=== PATIENT | female | born 1980 | race Caucasian/White ===

== ENCOUNTER 2018-04-02 17:50 | Emergency (ER) | payer BC, SELFPAY ==
[~2018-04-02] VITALS: Ht 170.2 cm; Wt 119.8 kg
[~2018-04-02 17:50] MED LIST: BUPR100 PO; BUPR150T2; BUSP10 PO; CIPR500 PO; CITA20 PO; CLIN300 PO; CYCL10 PO; Cleocin HCl300 MG PO; Ery-Tab250 MG PO; FEXO60 PO; FLUO20 PO; HYDACE10B PO; HYDACE5 PO; KETO10 PO; LISI10; LISI20 PO; LISI5 PO; METF500C; METO25ER; NAPR500 PO; OMEP20ER PO; ONDA8ODT MM; OXYACE5T PO; PHENA200 PO; PROM25 PO; PROP10 PO; Percocet 5-3251 EACH PO; QUASENSE PO; RXOXYACE PO; RXPROM25 PO; VENL37.5ER PO; VENL75ER; VITS; [UNRECOGNIZED DRUG - OTHER]; [UNRECOGNIZED DRUG - OTHER] PO
[2018-04-02] MEDS ORDERED: BUSP10 PO (18:10)
[2018-04-02] MEDS ORDERED: PROP10 PO (18:10)
[2018-04-02] MEDS ORDERED: LISI20 PO (18:11)
[2018-04-02] MEDS ORDERED: BUPR100ER PO (18:11)
[2018-04-02] MEDS ORDERED: Citalopram HBr20 MG PO (18:11)
[2018-04-02] MEDS ORDERED: Omeprazole20 M1 PO (18:12)
[2018-04-02 18:32] LABS: BASOPHILS ABSOLUTE AUTO 0.03 K/mm3 (0.00-0.23); BASOPHILS PERCENT AUTO 0 % (0-2); EOSINOPHILS ABSOLUTE AUTO 0.11 K/mm3 (0.00-0.68); EOSINOPHILS PERCENT AUTO 1 % (0-6); Hematocrit 39.1 % (33.0-51.0); Hemoglobin 12.9 g/dL (11.5-16.0); IMMATURE GRAN ABSOLUTE AUTO 0.06 K/mm3 (0.00-0.10); IMMATURE GRAN PERCENT AUTO 0 % (0-1); LYMPHOCYTES ABSOLUTE AUTO 1.77 K/mm3 (0.84-5.20); LYMPHOCYTES PERCENT AUTO 13 % (21-46); MONOCYTES ABSOLUTE AUTO 1.23 K/mm3 (0.16-1.47); MONOCYTES PERCENT AUTO 9 % (4-13); Mean Corpuscular HGB 30.1 pg (26.0-34.0); Mean Corpuscular Volume 91 fL (80-100); Mean Platelet Volume 9.3 fL (9.1-12.4); NEUTROPHILS ABSOLUTE AUTO 10.44 K/mm3 (1.96-9.15); NEUTROPHILS PERCENT AUTO 77 % (41-73); Platelet Count 308 K/mm3 (150-400); RDW Coefficient Variation 12.6 % (11.7-14.2); RDW Standard Deviation 41.8 fL (35.1-46.3); Red Blood Cell Count 4.29 M/mm3 (3.80-5.20); White Blood Cell Count 13.64 K/mm3 (4.00-11.30)
[2018-04-02 18:45] LABS: Alanine Aminotransfer (ALT/SGP 48 U/L (12-78); Albumin, Blood 3.8 g/dL (3.4-5.0); Albumin/Globulin Ratio 0.9 (0.8-1.8); Alk Phos 99 U/L (50-136); Anion Gap 8 mmol/L (6-16); Aspartate Aminotrans (AST/SGOT 18 U/L (12-37); Bilirubin, Total 0.3 mg/dL (0.1-1.0); Blood Urea Nitrogen 9 mg/dL (8-24); Bun/Creatinine Ratio 10.5 (12.0-20.0); CO2, Blood 26 mmol/L (21-32); Chloride, Blood 103 mmol/L (98-108); Creatinine, Blood 0.86 mg/dL (0.40-1.00); Globulin, Blood 4.2 g/dL (2.2-4.0); Glomerular Filtration Rate >60 (60-); Glucose, Blood 96 mg/dL (70-99); Potassium, Blood 3.7 mmol/L (3.5-5.5); Sodium, Blood 137 mmol/L (136-145)
[2018-04-02 19:19] LABS: Source, Urine Clean Catch
[2018-04-02 19:25] LABS: Bilirubin, Urine Neg (Neg); Blood, Urine 4+ (Neg); Glucose Qualitative, Urine Neg (Neg); Ketones, Urine Neg (Neg); Leukocyte Esterase, Urine 1+ (Neg); Nitrite, Urine Neg (Neg); Protein, Urine 1+ (Neg); Urobilinogen, Urine NORM (Normal)
[2018-04-02 19:40] LABS: Appearance, Urine Hazy (Clear); Color, Urine Yellow (P-Yellow)
[2018-04-02 19:41] LABS: Bacteria Many /hpf; Red Blood Cells, Urine 50-100 /hpf (0-2); Squamous Epithelial Cells Few /hpf (Few)
[2018-04-02] MEDS ORDERED: Roxicodone5 MG PO ×2 (21:30→21:47)
[2018-04-02] MEDS ORDERED: CEFD300 PO (21:32)
[2018-04-02] MEDS ORDERED: Zofran Odt4 MG PO (21:32)
== END 2018-04-02 21:57 | disposition home or self-care (01) ==
LOC: ER 17:50
PROVIDERS: Emergency Medicine
DX: N12 Tubulo-interstitial nephritis, not specified as acute or chronic (principal); I10 Essential (primary) hypertension; Z88.0 Allergy status to penicillin; Z88.2 Allergy status to sulfonamides; Z88.5 Allergy status to narcotic agent; Z79.899 Other long term (current) drug therapy; Z87.891 Personal history of nicotine dependence
CPT/HCPCS: 36415; 76770; 80053; 81001; 83690; 85025; 96361; 96365; 96375; 99284; J0696; J1885; J3010; J7030

== ENCOUNTER 2021-12-24 10:45 | Day surgery (SDC) | payer BC ==
[~2021-12-24] VITALS: Ht 170.2 cm; Wt 111.4 kg
[~2021-12-24 10:45] MED LIST changes: +BUPR100ER PO; +CEFD300 PO; +Citalopram HBr20 MG PO; +Omeprazole20 M1 PO; +Roxicodone5 MG PO; +Zofran Odt4 MG PO
[2021-12-24] MEDS ORDERED: ESTRADIOL (TWI1 EAC3 TD (12:12)
[2021-12-24] MEDS ORDERED: CYMBALTA30 M2 PO (12:12)
[2021-12-24] MEDS ORDERED: DULOXETINE HCL60 M1 PO (12:12)
[2021-12-24] MEDS ORDERED: TIZANIDINE HCL PO (12:14)
[2021-12-24] MEDS ORDERED: VITAMIN D31000 UNI1 PO (12:15)
[2021-12-24] MEDS ORDERED: ZINC15 PO (12:15)
[2021-12-24] MEDS ORDERED: MULVITA PO (12:15)
[2021-12-24] MEDS ORDERED: CALCIUM 600 +1 EA11 PO (12:16)
[2021-12-24] MEDS ORDERED: ZYRTEC10 M2 PO (12:16)
== END 2021-12-24 15:15 | disposition home or self-care (01) ==
LOC: ORSCSDS 10:45
PROVIDERS: Podiatrist Foot & Ankle Surgery
PROC: 0QSN04Z Reposition Right Metatarsal with Internal Fixation Device, Open Approach (ICD-10-PCS; principal; 2021-12-24 12:15)
DX: S92.354D Nondisplaced fracture of fifth metatarsal bone, right foot, subsequent encounter for fracture with routine healing (principal); I10 Essential (primary) hypertension; K21.9 Gastro-esophageal reflux disease without esophagitis; E66.01 Morbid (severe) obesity due to excess calories; Z68.38 Body mass index [BMI] 38.0-38.9, adult; Z79.899 Other long term (current) drug therapy
CPT/HCPCS: 82947; A9270; C1713; J0171; J1100; J1885; J2250; J2405; J2704; J3010; J3370; J7050; J7120

== ENCOUNTER 2023-09-18 17:19 | Emergency (ER) | payer BC ==
[~2023-09-18] VITALS: Ht 170.2 cm; Wt 111.1 kg
[~2023-09-18 17:19] MED LIST changes: +CALCIUM 600 +1 EA11 PO; +CYMBALTA30 M2 PO; +DULOXETINE HCL60 M1 PO; +ESTRADIOL (TWI1 EAC3 TD; +MULVITA PO; +TIZANIDINE HCL PO; +VITAMIN D31000 UNI1 PO; +ZINC15 PO; +ZYRTEC10 M2 PO
[2023-09-18 18:03] VITALS: BP 192/104
[2023-09-18 18:43] LABS: BASOPHILS ABSOLUTE AUTO 0.04 K/mm3 (0.00-0.23); BASOPHILS PERCENT AUTO 0 % (0-2); EOSINOPHILS ABSOLUTE AUTO 0.18 K/mm3 (0.00-0.68); EOSINOPHILS PERCENT AUTO 1 % (0-6); Hematocrit 38.9 % (33.0-51.0); Hemoglobin 13.9 g/dL (11.5-16.0); IMMATURE GRAN ABSOLUTE AUTO 0.03 K/mm3 (0.00-0.10); IMMATURE GRAN PERCENT AUTO 0 % (0-1); LYMPHOCYTES ABSOLUTE AUTO 2.85 K/mm3 (0.84-5.20); LYMPHOCYTES PERCENT AUTO 21 % (21-46); MONOCYTES ABSOLUTE AUTO 1.12 K/mm3 (0.16-1.47); MONOCYTES PERCENT AUTO 8 % (4-13); Mean Corpuscular HGB 31.3 pg (26.0-34.0); Mean Corpuscular HGB Conc 35.7 g/dL (31.5-36.5); Mean Corpuscular Volume 88 fL (80-100); Mean Platelet Volume 9.4 fL (9.1-12.4); NEUTROPHILS ABSOLUTE AUTO 9.17 K/mm3 (1.96-9.15); NEUTROPHILS PERCENT AUTO 69 % (41-73); Platelet Count 346 K/mm3 (150-400); RDW Coefficient Variation 12.8 % (11.7-14.2); RDW Standard Deviation 40.4 fL (35.1-46.3); Red Blood Cell Count 4.44 M/mm3 (3.80-5.20); White Blood Cell Count 13.39 K/mm3 (4.00-11.30)
[2023-09-18 19:07] LABS: Albumin, Blood 3.8 g/dL (3.4-5.0); Bilirubin, Total 0.3 mg/dL (0.1-1.0); Bun/Creatinine Ratio 13.6 (12.0-20.0); Creatinine, Blood 0.81 mg/dL (0.40-1.00); Globulin, Blood 3.7 g/dL (2.2-4.0); Potassium, Blood 3.4 mmol/L (3.5-5.5); Total Protein, Blood 7.5 g/dL (6.4-8.2)
[2023-09-18] MEDS ORDERED: REGLAN1013 PO (19:23)
== END 2023-09-18 19:30 | disposition home or self-care (01) ==
LOC: ER 17:19
PROVIDERS: Physician Assistant
DX: K52.9 Noninfective gastroenteritis and colitis, unspecified (principal); E87.6 Hypokalemia; I10 Essential (primary) hypertension; Z88.0 Allergy status to penicillin; Z88.2 Allergy status to sulfonamides; Z88.5 Allergy status to narcotic agent; Z79.899 Other long term (current) drug therapy; Z87.891 Personal history of nicotine dependence
CPT/HCPCS: 80053; 85025; 96374; 99283-25; J2765; J7030

== ENCOUNTER 2024-07-27 08:51 | Emergency (ER) | payer BC ==
[~2024-07-27] VITALS: Ht 172.7 cm; Wt 99.8 kg
[~2024-07-27 08:51] MED LIST changes: +REGLAN1013 PO
[2024-07-27] MEDS ORDERED: NS 1,000 ML IV SCH (09:20)
[2024-07-27] MEDS ORDERED: Droperidol 5 mg/2 ml Vial IV ONE (09:20)
[2024-07-27] MEDS ORDERED: Ketorolac Tromethamine 30mg Vial IV ONE (09:20)
[2024-07-27 09:28] LABS: Source, Urine Clean Catch
[2024-07-27 09:35] LABS: Appearance, Urine Hazy (Clear); Blood, Urine 2+ (Neg); Color, Urine Yellow (P-Yellow); Glucose Qualitative, Urine Neg (Neg); Ketones, Urine Neg (Neg); Leukocyte Esterase, Urine 1+ (Neg); Nitrite, Urine Neg (Neg); Protein, Urine 2+ (Neg); Specific Gravity, Urine 1.015 (1.003-1.022); Urobilinogen, Urine 1+ (Normal)
[2024-07-27 09:39] LABS: BASOPHILS ABSOLUTE AUTO 0.05 K/mm3 (0.00-0.23); BASOPHILS PERCENT AUTO 0 % (0-2); EOSINOPHILS ABSOLUTE AUTO 0.13 K/mm3 (0.00-0.68); EOSINOPHILS PERCENT AUTO 1 % (0-6); Hematocrit 41.6 % (33.0-51.0); Hemoglobin 14.9 g/dL (11.5-16.0); IMMATURE GRAN ABSOLUTE AUTO 0.04 K/mm3 (0.00-0.10); IMMATURE GRAN PERCENT AUTO 0 % (0-1); LYMPHOCYTES ABSOLUTE AUTO 1.74 K/mm3 (0.84-5.20); LYMPHOCYTES PERCENT AUTO 14 % (21-46); MONOCYTES ABSOLUTE AUTO 0.94 K/mm3 (0.16-1.47); MONOCYTES PERCENT AUTO 8 % (4-13); Mean Corpuscular HGB 31.4 pg (26.0-34.0); Mean Corpuscular HGB Conc 35.8 g/dL (31.5-36.5); Mean Corpuscular Volume 88 fL (80-100); Mean Platelet Volume 9.6 fL (9.1-12.4); NEUTROPHILS ABSOLUTE AUTO 9.36 K/mm3 (1.96-9.15); NEUTROPHILS PERCENT AUTO 76 % (41-73); Platelet Count 396 K/mm3 (150-400); RDW Coefficient Variation 12.7 % (11.7-14.2); RDW Standard Deviation 40.6 fL (35.1-46.3); Red Blood Cell Count 4.75 M/mm3 (3.80-5.20); White Blood Cell Count 12.26 K/mm3 (4.00-11.30)
[2024-07-27 09:45] VITALS: BP 132/86
[2024-07-27 09:52] LABS: Albumin, Blood 3.8 g/dL (3.4-5.0); Bilirubin, Total 0.7 mg/dL (0.1-1.0); Bun/Creatinine Ratio 10.1 (12.0-20.0); Calcium, Blood 9.3 mg/dL (8.5-10.1); Creatinine, Blood 0.8 mg/dL (0.40-1.00); Globulin, Blood 3.7 g/dL (2.2-4.0); Potassium, Blood 3.1 mmol/L (3.5-5.5); Total Protein, Blood 7.5 g/dL (6.4-8.2)
[2024-07-27 09:53] LABS: Bilirubin, Urine 1+ (Neg)
[2024-07-27 09:57] LABS: White Blood Cells, Urine 0-2 /hpf (0-5)
[2024-07-27 09:58] LABS: Bacteria Many /hpf; Mucus Heavy (0-Heavy); Squamous Epithelial Cells Few /hpf (Few)
[2024-07-27] MEDS ORDERED: Potassium Chloride 20 MEQ TabCR PO ONE (10:05)
[2024-07-27] MEDS ORDERED: Acetaminophen 325 MG TABLET PO ONE (10:45)
[2024-07-27] MEDS ORDERED: OxyCODONE HCL 5 MG TAB PO ONE (10:45)
[2024-07-27] MEDS ORDERED: RX Prepack 2 Tabs Ondansetron ODT 4MG UD ONE (10:45)
[2024-07-27] MEDS ORDERED: LEVAQUIN750 MG PO (10:50)
[2024-07-27] MEDS ORDERED: HYDROmorphone HCl/Pf 1MG SYR IV ONE (10:55)
== END 2024-07-27 11:09 | disposition home or self-care (01) ==
LOC: ER 08:51
PROVIDERS: Emergency Medicine
DX: N12 Tubulo-interstitial nephritis, not specified as acute or chronic (principal); K52.9 Noninfective gastroenteritis and colitis, unspecified; E87.6 Hypokalemia; I10 Essential (primary) hypertension; Z87.891 Personal history of nicotine dependence; Z79.899 Other long term (current) drug therapy; Z88.0 Allergy status to penicillin; Z88.2 Allergy status to sulfonamides; Z88.5 Allergy status to narcotic agent
CPT/HCPCS: 74177; 80053; 81001; 83690; 85025; 87086; 96361; 96374-59; 96375; 99284-25; A9270; J1790; J1885; J7030; Q9967